=== PATIENT | male | born 1975 | race Caucasian/White ===

== ENCOUNTER 2022-06-14 11:10 | Emergency (ER) | payer OTHER ==
[2022-06-14 11:21] VITALS: BP 152/112; PULSE 70; RESP 18; TEMP 98.7; BMI 32.1
[2022-06-14] MEDS ORDERED: LIDOCAINE VISCOUS 2% ORAL/TOP 15 ML UNIT-DOSE CUP ONE (12:08)
[2022-06-14] MEDS ORDERED: LIDOCAINE VISCOUS 2% ORAL/TOP 15 ML UNIT-DOSE CUP MM ONE (12:30)
== END 2022-06-14 12:45 | disposition home or self-care (01) ==
LOC: FER 11:10
DX: K64.9 Unspecified hemorrhoids (principal)
CPT/HCPCS: 99282-25

== ENCOUNTER 2023-03-02 04:39 | Emergency (ER) | payer OTHER ==
[2023-03-02 04:48] VITALS: BP 149/97; PULSE 82; RESP 16; TEMP 98.3; BMI 29.9
[2023-03-02] MEDS ORDERED: AMOXICILLIN 500 MG CAPSULE (FP) PO ONE (05:10)
[2023-03-02] MEDS ORDERED: IBUPROFEN 600 MG TABLET (FP) PO ONE ×2 (05:10→05:11)
== END 2023-03-02 05:25 | disposition home or self-care (01) ==
LOC: FER 04:39 → SUPCPDRO 04:39 → FER 05:25
DX: H92.01 Otalgia, right ear (principal); R07.0 Pain in throat; J02.9 Acute pharyngitis, unspecified
CPT/HCPCS: 87651; 99283-25